=== PATIENT | female | born 1975 | race Caucasian/White ===

== ENCOUNTER 2016-05-22 21:29 | Emergency (ER) | payer OTHER, MEDICARE ==
[~2016-05-22 21:29] MED LIST: AMITRIPTYLINE H75 M1 PO; CELEXA 20MG20 MG/TA1 PO; LISINOPRIL20 MG PO; NEURONTIN600 M1 PO; PRILOSEC 20MG20 MG PO
[2016-05-22] MEDS ORDERED: AUGMENTIN 875-1 EAC1 PO (21:39)
[2016-05-22] MEDS ORDERED: NORCO 325 MG-51 TAB PO (21:39)
== END 2016-05-22 21:55 | disposition home or self-care (01) ==
LOC: ED 21:29
DX: H66.92 Otitis media, unspecified, left ear (principal)